=== PATIENT | male | born 1975 | race Caucasian/White ===

== ENCOUNTER 2020-02-10 08:07 | Observation (INO) | payer BC ==
[2020-02-09 11:03] VITALS: BMI 37.3
[~2020-02-10 08:07] MED LIST: ACETAMINOPHEN TAB 500 MG TAB PO ONE; DEXAMETHASONE SOD PHOSPHATE 4 MG/ML 1 ML VIAL IV ONE; HEPARIN SODIUM,PORCINE 5,000 UNIT/ML 1 ML VIAL SQ ONE; LIDOCAINE 1% (10MG/ML) FOR IV START INTRADERMA PRN; ONDANSETRON 4 MG/2 ML VIAL IVP ONE; SCOPOLAMINE 1.5MG/72HR PATCH TRANSDERM ONE; ceFAZolin 3 GM in SODIUM CHLORIDE 0.9% 100 ML IVPB ONE
[2020-02-10] MEDS: LACTATED RINGERS 1,000 ML IV SCH (09:00)
[2020-02-10] MEDS ORDERED: fentaNYL (PF) 50 MCG/ML 2 ML AMP IV ONE (09:44)
[2020-02-10] MEDS ORDERED: MIDAZOLAM 2 MG/2 ML VIAL IV ONE (09:44)
--- NOTE | 2020-02-10 10:13 | P.GSHP ---
History of Present Illness H&P Date: 02/10/20 Chief Complaint: Incisional hernia This is a 44-year-old male who presents today for open repair of incisional hernia. Patient previous exploratory laparotomy for a pancreatic operation many years ago. Past Medical History Past Medical History: GERD/Reflux, Hypertension, Thyroid Disorder Additional Past Medical History / Comment(s): "slight high blood pressure"- no rx, History of Any Multi-Drug Resistant Organisms: None Reported Past Surgical History: Orthopedic Surgery, Tonsillectomy Additional Past Surgical History / Comment(s): exploratory lap surgery / stents placed in pancreas, left knee surgery Past Anesthesia/Blood Transfusion Reactions: No Reported Reaction Past Psychological History: No Psychological Hx Reported Smoking Status: Former smoker Past Alcohol Use History: Occasional Additional Past Alcohol Use History / Comment(s): quit smoking 6 yrs ago, smoked for 19 yrs, 1 PPD Past Drug Use History: None Reported - Past Family History Mother Family Medical History: No Reported History Medications and Allergies Home Medications Medication Instructions Recorded Confirmed Type Ibuprofen [Motrin Ib] 200 mg PO Q8H PRN 02/09/20 02/09/20 History Synthroid(Dose Unknown) 1 tab PO QAM 02/09/20 02/09/20 History Allergies Allergy/AdvReac Type Severity Reaction Status Date / Time mushroom Allergy Unknown Verified 02/09/20 10:56 Surgical - Exam Vital Signs Temp Pulse Resp BP Pulse Ox 98.9 F 67 20 135/85 98 02/10/20 08:40 02/10/20 08:40 02/10/20 08:40 02/10/20 08:40 02/10/20 08:40 - General well developed, well nourished, no distress - Eyes PERRL - ENT normal pinna - Neck no masses - Respiratory normal expansion - Cardiovascular Rhythm: regular - Abdomen Midline scar with incisional hernias Abdomen: soft, non tender Assessment and Plan Assessment: Incisional hernia. We'll perform open repair.
[2020-02-10] MEDS ORDERED: fentaNYL (PF) 50 MCG/ML 2 ML AMP ONE (10:16)
[2020-02-10] MEDS ORDERED: PROPOFOL 10 MG/ML 20 ML VIAL IV ONE (10:16)
[2020-02-10] MEDS ORDERED: LIDOCAINE 1% INJ 10MG/ML (20 ML MDV) ONE (10:16)
[2020-02-10] MEDS ORDERED: ONDANSETRON 4 MG/2 ML VIAL ONE (10:16)
[2020-02-10] MEDS ORDERED: KETAMINE 10 MG/ML 20 ML VIAL ONE (10:16)
[2020-02-10] MEDS ORDERED: DEXAMETHASONE SOD PHOSPHATE 4 MG/ML 1 ML VIAL ONE (10:16)
[2020-02-10] MEDS ORDERED: ROPIVACAINE 5 MG/ML 30 ML VIAL ONE (10:16)
[2020-02-10] MEDS ORDERED: ePHEDrine SULFATE/0.9% NACL/PF 50 MG/5 ML SYRINGE IV ONE (10:16)
[2020-02-10] MEDS ORDERED: NEOSTIGMINE 1 MG/ML 10 ML VIAL ONE (10:16)
[2020-02-10] MEDS ORDERED: ROCURONIUM 10 MG/ML (10 ML VIAL) IV ONE (10:16)
[2020-02-10] MEDS ORDERED: KETOROLAC 15 MG/ML 1 ML VIAL ONE (10:16)
[2020-02-10] MEDS ORDERED: GLYCOPYRROLATE 0.2 MG/ML 2 ML VIAL ONE (10:16)
[2020-02-10] MEDS ORDERED: MIDAZOLAM 2 MG/2 ML VIAL ONE (10:16)
[2020-02-10] MEDS ORDERED: SUCCINYLCHOLINE CHLORIDE VIAL 200 MG/10 ML VIAL IV ONE (10:16)
[2020-02-10] MEDS ORDERED: HYDROmorphone 0.5 MG/0.5 ML SYRINGE IVP PRN (12:03)
[2020-02-10] MEDS ORDERED: ONDANSETRON 4 MG/2 ML VIAL IVP PRN (12:03)
[2020-02-10] MEDS ORDERED: HYDROcodone/APAP 5-325MG 1 EACH TAB PO PRN (12:03)
[2020-02-10] MEDS ORDERED: NALOXONE 0.4 MG/ML 1 ML VIAL IV PRN (12:03)
[2020-02-10] MEDS ORDERED: LACTATED RINGERS 1,000 ML IV ONE (12:03)
[2020-02-10] MEDS ORDERED: ACETAMINOPHEN TAB 325 MG TAB PO PRN (12:03)
--- NOTE | 2020-02-10 12:03 | P.OP ---
Date of Procedure: 02/10/20 Preoperative Diagnosis: Incisional hernia Postoperative Diagnosis: Incarcerated incisional hernia Procedure(s) Performed: (Incarcerated ventral hernia with mesh. Partial omentectomy Anesthesia: SNEHAL Surgeon: Orlando Salcedo Estimated Blood Loss (ml): 5 Pathology: other (Omentum) Condition: stable Disposition: PACU Description of Procedure: The patient's placed in the operative table in the supine position. He received general anesthesia. His and prepped and draped usual sterile fashion. The skin was incised along the midline scar and the scar was excised. The subcutaneous tissue divided with cautery and the incarcerated incisional hernia was located. The patient's entire midline scar appeared to be several hernias. The hernia sac was opened. The incarcerated omentum was transected sent to pathology. The fascial repair was then performed using. 0 Ethibond suture. #1 out of 6 was then used to buttress the repair. Prolene mesh was then placed over top the repair and secured with a secure strap tacker. A TERESA drains placed through separate stab wishes and brought through the left upper quadrant. The drain secured with 2-0 nylon. Stefani's fascia closed 0 Vicryl. Skin was closed calista. Patient top she will sent to recovery in stable condition.
--- NOTE | 2020-02-10 12:39 | P.ANPRN ---
Procedure Note - Anesthesia - Nerve Block Performed Bilateral Rectus Abdominis Time Out Performed: Yes (:43) Date of Procedure: 02/10/20 Procedure Start Time: : Procedure Stop Time: : Location of Patient: PreOp Indication: Acute Post-Operative Pain, Requested by Surgeon (Dr Salcedo) Sedation Type: Sedate with meaningful contact maintained Preparation: Sterile Prep Position: Supine Catheter: None Needle Types: Pajunk Needle Gauge: 21 Ultrasound used to visualize needle placement: Yes Ultrasound used to observe medication spread: Yes Injectate: 0.5% Ropivacaine (see comment for volume) (15cc each side. Decadron 2mg each side.) Blood Aspirated: No Pain Paresthesia on Injection Noted: No Resistance on Injection: Normal Image Stored and Saved: Yes Events: Uneventful and Well Tolerated
[2020-02-10] MEDS ORDERED: diphenhydrAMINE 50 MG/ML 1 ML VIAL IVP ONE (12:49)
[2020-02-10] MEDS: HYDROmorphone 0.5 MG/0.5 ML SYRINGE IVP PRN ×2 (13:07→13:33)
--- NOTE | 2020-02-10 16:25 | P.CONS ---
History of Present Illness - Reason for Consult Hypothyroidism - History of Present Illness 44-year-old the male is admitted for incisional hernia repair, patient had this is incisional hernia from his pancreatic surgery about 20 years ago. Patient is passing gas patient denied any fever chills nausea vomiting dysuria patient is feeling much better does have an abdominal binder does have bowel sounds. Patient initially was bit tachycardic that resolved at this time. Review of Systems REVIEW OF SYSTEMS: CONSTITUTIONAL: No fever, no malaise, no fatigue. HEENT: No recent visual problems or hearing problems. Denied any sore throat. CARDIOVASCULAR: No chest pain, orthopnea, PND, no palpitations, no syncope. PULMONARY: No shortness of breath, no cough, no hemoptysis. GASTROINTESTINAL: No diarrhea, no nausea, no vomiting, no abdominal pain. NEUROLOGICAL: No headaches, no weakness, no numbness. HEMATOLOGICAL: Denies any bleeding or petechiae. GENITOURINARY: Denies any burning micturition, frequency, or urgency. MUSCULOSKELETAL/RHEUMATOLOGICAL: Denies any joint pain, swelling, or any muscle pain. ENDOCRINE: Denies any polyuria or polydipsia. The rest of the 14-point review of systems is negative. Past Medical History Past Medical History: GERD/Reflux, Hypertension, Thyroid Disorder Additional Past Medical History / Comment(s): "slight high blood pressure"- no rx, History of Any Multi-Drug Resistant Organisms: None Reported Past Surgical History: Orthopedic Surgery, Tonsillectomy Additional Past Surgical History / Comment(s): exploratory lap surgery / stents placed in pancreas, left knee surgery, open hernia repair with mesh 2019. Past Anesthesia/Blood Transfusion Reactions: No Reported Reaction Past Psychological History: No Psychological Hx Reported Smoking Status: Former smoker Past Alcohol Use History: Occasional Additional Past Alcohol Use History / Comment(s): quit smoking 6 yrs ago, smoked for 19 yrs, 1 PPD Past Drug Use History: None Reported - Past Family History Mother Family Medical History: No Reported History Medications and Allergies Home Medications Medication Instructions Recorded Confirmed Type Ibuprofen [Motrin Ib] 200 mg PO Q8H PRN 02/09/20 02/09/20 History Synthroid(Dose Unknown) 1 tab PO QAM 02/09/20 02/09/20 History Allergies Allergy/AdvReac Type Severity Reaction Status Date / Time mushroom Allergy Unknown Verified 02/09/20 10:56 Physical Exam Vitals: Vital Signs Temp Pulse Pulse Resp BP BP BP 02/10/20 15:00 97.8 F 125 H 20 137/84 02/10/20 14:00 69 16 113/65 02/10/20 13:50 101 H 18 113/59 02/10/20 13:35 66 16 121/62 02/10/20 13:20 61 16 126/66 02/10/20 13:05 73 16 117/65 02/10/20 12:50 75 16 121/65 02/10/20 12:35 76 16 122/73 02/10/20 12:20 76 16 137/71 02/10/20 12:05 97.2 F L 67 16 141/73 02/10/20 09:50 67 18 130/83 02/10/20 08:40 98.9 F 67 20 135/85 Pulse Ox 02/10/20 15:00 94 L 02/10/20 14:00 91 L 02/10/20 13:50 92 L 02/10/20 13:35 92 L 02/10/20 13:20 92 L 02/10/20 13:05 95 02/10/20 12:50 96 02/10/20 12:35 100 02/10/20 12:20 100 02/10/20 12:05 95 02/10/20 09:50 99 02/10/20 08:40 98 Intake and Output 02/10/20 02/10/20 02/10/20 06:59 14:59 22:59 Intake Total 1950 Output Total 20 Balance 1929 Intake: IV 1950 Output: Estimated Blood Loss 20 Other: Weight 126.9 kg PHYSICAL EXAMINATION: GENERAL: The patient is alert and oriented x3, not in any acute distress. Well developed, well nourished. Obese HEENT: Pupils are round and equally reacting to light. EOMI. No scleral icterus. No conjunctival pallor. Normocephalic, atraumatic. No pharyngeal erythema. No thyromegaly. CARDIOVASCULAR: S1 and S2 present. No murmurs, rubs, or gallops. PULMONARY: Chest is clear to auscultation, no wheezing or crackles. ABDOMEN abdominal binder in place nontender, nondistended, normoactive bowel sounds. No palpable organomegaly. MUSCULOSKELETAL: No joint swelling or deformity. EXTREMITIES: No cyanosis, clubbing, or pedal edema. NEUROLOGICAL: Gross neurological examination did not reveal any focal deficits. SKIN: No rashes. Assessment and Plan Plan: -Hyperthyroidism patient will be per resumed on levothyroxin -Obesity -Status post incisional hernia repair pain management and DVT prophylaxis as per primary service
[2020-02-10] MEDS: KETOROLAC 15 MG/ML 1 ML VIAL IVP SCH ×2 (17:57→23:40)
[2020-02-11] MEDS: LEVOTHYROXINE 100 MCG TAB PO SCH (05:42)
[2020-02-11] MEDS: KETOROLAC 15 MG/ML 1 ML VIAL IVP SCH ×4 (05:43→23:28)
[2020-02-11] MEDS: LACTATED RINGERS 1,000 ML IV SCH (05:46)
[2020-02-11] MEDS: ENOXAPARIN 40 MG/0.4 ML SYRINGE SQ SCH (09:04)
--- NOTE | 2020-02-11 15:30 | P.PN ---
Subjective Progress Note Date: 02/11/20 CHIEF COMPLAINT: Open incisional hernia repair HISTORY OF PRESENT ILLNESS: The patient is a 44-year-old male status post incisional hernia repair. He feels well. Pain is controlled. He is tolerating a sandwich and juice. Output of TERESA over 200+ mL. ROS: No reports of nausea and vomiting. No fevers or chills. No new chest pain. No productive sputum PHYSICAL EXAM: VITAL SIGNS: Reviewed CONSTITUTIONAL: Well developed and in no acute distress. EYES: Conjuctivae without sclera icterus. Extraocular movements grossly intact. HEAD, EARS, NOSE, THROAT: Moist buccal mucosa. Head is atraumatic, normocephalic. Hears conversational speech. No nasal drainage. NECK: Supple. RESPIRATORY: Non-labored respirations and equal bilateral excursions. CARDIOVASCULAR: Palpable 2+ radial pulses. ABDOMEN: TERESA sanguinous. Dressing intact. Binder repositioned MUSCULOSKELETAL: No gross deformity of the lower extremities noted. No clubbing. No cyanosis. SKIN: Good skin turgor. Well perfused. NEUROLOGIC: Cranial nerves II through XII grossly intact. No focal or lateralizing signs. PSYCH: Appropriate affect. Alert and oriented to person, place and time. CLINICAL LABS: No new labs ASSESSMENT: 1. Open incisional hernia repair PLAN: 1. Check CBC for moderate sanguinous drainage from TERESA 2. Continue diet. Objective - Vital Signs Vital signs: Vital Signs Temp 98 F 02/11/20 14:48 Pulse 82 02/11/20 14:48 Resp 17 02/11/20 02:28 BP 128/78 02/11/20 14:48 Pulse Ox 96 02/11/20 14:48 Intake & Output 02/10/20 02/11/20 02/11/20 18:59 06:59 18:59 Intake Total 1950 Output Total 110 170 270 Balance 1840 -170 -270 Weight 126.9 kg Intake: IV 1950 Output: Drainage 90 170 270 Abdomen 90 170 270 Estimated Blood Loss 20 Other: Voiding Method Toilet Toilet # Voids 2 - Labs CBC & Chem 7: 02/11/20 15:38 Assessment and Plan (1) Incisional hernia Current Visit: Yes Status: Acute Code(s): K43.2 - INCISIONAL HERNIA WITHOUT OBSTRUCTION OR GANGRENE SNOMED Code(s): 062007105 (2) Obesity due to excess calories Current Visit: Yes Status: Acute Code(s): E66.09 - OTHER OBESITY DUE TO EXCESS CALORIES SNOMED Code(s): 684095060
--- NOTE | 2020-02-11 15:38 | P.PN ---
Subjective patient is clinically doing well and had a bowel movement. Patient probably can be discharged . Patient is overall doing well except for significant drainage from the TERESA drain. Constitutional: Denied any fatigue denied any fever. Cardio vascular: denied any chest pain, palpitations Gastrointestinal denied any nausea vomiting Pulmonary: Denied any shortness of breath cough Neurologic denied any new focal deficits All inpatient medications were reviewed and appropriate changes in these medications as dictated in the interval history and assessment and plan. Objective - Vital Signs Vital signs: Vital Signs Temp 98 F 02/11/20 14:48 Pulse 82 02/11/20 14:48 Resp 17 02/11/20 02:28 BP 128/78 02/11/20 14:48 Pulse Ox 96 02/11/20 14:48 Intake & Output 02/10/20 02/11/20 02/11/20 18:59 06:59 18:59 Intake Total 1950 Output Total 110 170 270 Balance 1840 -170 -270 Weight 126.9 kg Intake: IV 1950 Output: Drainage 90 170 270 Abdomen 90 170 270 Estimated Blood Loss 20 Other: Voiding Method Toilet Toilet # Voids 2 - Exam PHYSICAL EXAMINATION: GENERAL: The patient is alert and oriented x3, not in any acute distress. Well developed, well nourished. Obese HEENT: Pupils are round and equally reacting to light. EOMI. No scleral icterus. No conjunctival pallor. Normocephalic, atraumatic. No pharyngeal erythema. No thyromegaly. CARDIOVASCULAR: S1 and S2 present. No murmurs, rubs, or gallops. PULMONARY: Chest is clear to auscultation, no wheezing or crackles. ABDOMEN abdominal binder in place nontender, nondistended, normoactive bowel sounds. No palpable organomegaly. MUSCULOSKELETAL: No joint swelling or deformity. EXTREMITIES: No cyanosis, clubbing, or pedal edema. NEUROLOGICAL: Gross neurological examination did not reveal any focal deficits. SKIN: No rashes. Assessment and Plan Plan: -Hyperthyroidism was resumed on levothyroxin -Obesity -Status post incisional hernia repair pain management and DVT prophylaxis as per primary servicepatient has a TERESA drain which is draining significantly we'll follow the patient on as-needed basis.
[2020-02-11 16:04] LABS: Basophils # (A) 0.1 k/uL (0-0.2); Basophils % (A) 1 %; Eosinophils # (A) 0.2 k/uL (0-0.7); Eosinophils % (A) 1 %; HCT 38.8 % (39.0-53.0); Lymphocytes # (A) 1.9 k/uL (1.0-4.8); Lymphocytes % (A) 14 %; MCH 31.1 pg (25.0-35.0); MCHC 33.6 g/dL (31.0-37.0); MCV 92.6 fL (80.0-100.0); Monocytes # (A) 0.8 k/uL (0-1.0); Monocytes % (A) 6 %; Neutrophils # (A) 10.2 k/uL (1.3-7.7); Neutrophils % (A) 77 %; Platelet Count 328 k/uL (150-450); RBC 4.19 m/uL (4.30-5.90); WBC 13.3 k/uL (3.8-10.6)
[2020-02-12] MEDS: KETOROLAC 15 MG/ML 1 ML VIAL IVP SCH (05:19)
[2020-02-12] MEDS: LACTATED RINGERS 1,000 ML IV SCH (05:19)
[2020-02-12] MEDS: LEVOTHYROXINE 100 MCG TAB PO SCH (05:19)
[2020-02-12 07:13] LABS: Basophils % (A) 0 %; Eosinophils # (A) 0.2 k/uL (0-0.7); Eosinophils % (A) 2 %; HCT 35.1 % (39.0-53.0); HGB 11.9 gm/dL (13.0-17.5); Lymphocytes # (A) 1.5 k/uL (1.0-4.8); Lymphocytes % (A) 15 %; MCH 31.7 pg (25.0-35.0); MCHC 33.9 g/dL (31.0-37.0); MCV 93.4 fL (80.0-100.0); Mean Platelet Volume 7.1; Monocytes # (A) 0.7 k/uL (0-1.0); Monocytes % (A) 7 %; Neutrophils # (A) 7.4 k/uL (1.3-7.7); Neutrophils % (A) 74 %; Platelet Count 265 k/uL (150-450); RBC 3.75 m/uL (4.30-5.90); RDW 12.2 % (11.5-15.5)
[2020-02-12 08:28] VITALS: BP 137/95; PULSE 91; RESP 16; TEMP 98.1
[2020-02-12] MEDS: ENOXAPARIN 40 MG/0.4 ML SYRINGE SQ SCH (08:28)
--- NOTE | 2020-02-12 12:03 | P.PN ---
Subjective patient is clinically doing well and had a bowel movement. Patient probably can be discharged . Patient is overall doing well except for significant drainage from the TERESA drain. 02/12/2020 Patient is clinically doing well his output from TERESA drain has significantly gone down possibly will be discharged Constitutional: Denied any fatigue denied any fever. Cardio vascular: denied any chest pain, palpitations Gastrointestinal denied any nausea vomiting Pulmonary: Denied any shortness of breath cough Neurologic denied any new focal deficits All inpatient medications were reviewed and appropriate changes in these medications as dictated in the interval history and assessment and plan. Objective - Vital Signs Vital signs: Vital Signs Temp 98.1 F 02/12/20 08:25 Pulse 91 02/12/20 08:25 Resp 16 02/12/20 08:25 BP 137/95 02/12/20 08:25 Pulse Ox 94 L 02/12/20 08:25 Intake & Output 02/11/20 02/12/20 02/12/20 18:59 06:59 18:59 Intake Total 700 Output Total 300 20 15 Balance -300 680 -15 Intake: Oral 700 Output: Drainage 300 20 15 Abdomen 300 20 15 Other: Voiding Method Toilet Toilet Toilet # Voids 4 2 - Exam PHYSICAL EXAMINATION: GENERAL: The patient is alert and oriented x3, not in any acute distress. Well developed, well nourished. Obese HEENT: Pupils are round and equally reacting to light. EOMI. No scleral icterus. No conjunctival pallor. Normocephalic, atraumatic. No pharyngeal erythema. No thyromegaly. CARDIOVASCULAR: S1 and S2 present. No murmurs, rubs, or gallops. PULMONARY: Chest is clear to auscultation, no wheezing or crackles. ABDOMEN abdominal binder in place nontender, nondistended, normoactive bowel sounds. No palpable organomegaly. MUSCULOSKELETAL: No joint swelling or deformity. EXTREMITIES: No cyanosis, clubbing, or pedal edema. NEUROLOGICAL: Gross neurological examination did not reveal any focal deficits. SKIN: No rashes. - Labs CBC & Chem 7: 02/12/20 06:34 Labs: Abnormal Lab Results - Last 24 Hours (Table) 02/11/20 02/12/20 Range/Units 15:38 06:34 WBC 13.3 H (3.8-10.6) k/uL RBC 4.19 L 3.75 L (4.30-5.90) m/uL Hgb 11.9 L (13.0-17.5) gm/dL Hct 38.8 L 35.1 L (39.0-53.0) % Neutrophils # 10.2 H (1.3-7.7) k/uL Assessment and Plan Plan: -Hyperthyroidism continue on levothyroxin -Obesity -Status post incisional hernia repair pain management and DVT prophylaxis as per primary servicepatient
--- NOTE | 2020-02-12 12:50 | P.DS ---
Providers Date of admission: 02/11/20 05:55 Expected date of discharge: 02/12/20 Attending physician: Orlando Salcedo Consults: 02/10/20 12:03 Consult Physician Routine Consulting Provider: Rajinder Pedroza Consult Reason/Comments: med manage Do you want consulting provider notified?: Yes Primary care physician: Francisco J Escobar - Discharge Diagnosis(es) (1) Incisional hernia Current Visit: Yes Status: Acute (2) Obesity due to excess calories Current Visit: Yes Status: Acute Hospital Course: CHIEF COMPLAINT: Open incisional hernia repair HISTORY OF PRESENT ILLNESS: The patient is a 44-year-old male status post incisional hernia repair. His pain is controlled. He is tolerating regular diet. Output of TERESA sanguinous improved from over 200+ mL yesterday to less than 100 mL. ROS: No reports of nausea and vomiting. No fevers or chills. No new chest pain. No productive sputum PHYSICAL EXAM: VITAL SIGNS: Reviewed CONSTITUTIONAL: Well developed and in no acute distress. EYES: Conjuctivae without sclera icterus. Extraocular movements grossly intact. HEAD, EARS, NOSE, THROAT: Moist buccal mucosa. Head is atraumatic, normocephalic. Hears conversational speech. No nasal drainage. NECK: Supple. RESPIRATORY: Non-labored respirations and equal bilateral excursions. CARDIOVASCULAR: Palpable 2+ radial pulses. ABDOMEN: TERESA sanguinous. Dressing intact. Abdominal binder present MUSCULOSKELETAL: No gross deformity of the lower extremities noted. No clubbing. No cyanosis. SKIN: Good skin turgor. Well perfused. NEUROLOGIC: Cranial nerves II through XII grossly intact. No focal or lateralizing signs. PSYCH: Appropriate affect. Alert and oriented to person, place and time. CLINICAL LABS: Hgb 11.9. WBC normal ASSESSMENT: 1. Open incisional hernia repair PLAN: 1. Overall, stable for discharge. 2. Diet as tolerated 3. Pain management reviewed Patient Condition at Discharge: Stable Plan - Discharge Summary Discharge Rx Participant: Yes New Discharge Prescriptions: New Ibuprofen [Motrin] 600 mg PO Q8HR PRN #30 tab PRN Reason: Pain Acetaminophen Tab [Tylenol Tab] 1,000 mg PO Q6HR PRN #30 tablet Continue Synthroid(Dose Unknown) 1 tab PO QAM Discontinued Ibuprofen [Motrin Ib] 200 mg PO Q8H PRN PRN Reason: Pain Discharge Medication List Synthroid(Dose Unknown) 1 tab PO QAM 02/09/20 [History] Acetaminophen Tab [Tylenol Tab] 1,000 mg PO Q6HR PRN #30 tablet 02/12/20 [Rx] Ibuprofen [Motrin] 600 mg PO Q8HR PRN #30 tab 02/12/20 [Rx] Follow up Appointment(s)/Referral(s): Orlando Salcedo MD [STAFF PHYSICIAN] - 02/21/20 1:30 pm Patient Instructions/Handouts: [place] Drain Care (DC), Open Herniorrhaphy (DC), Abdominal Binder (DC), Ventral Hernia Repair (DC) Activity/Diet/Wound Care/Special Instructions: No lifting over 10 pounds for 4 weeks No bath tub soaks Keep TERESA site dry Wear abdominal binder for comfort Discharge Disposition: HOME SELF-CARE
== END 2020-02-12 13:20 | disposition home or self-care (01) ==
LOC: OR 08:07 → 4SSUR 11:54 → OR 02-11 06:28 → 1SOBS 02-11 21:27
PROVIDERS: ADMIT Surgery; ATTEND Surgery
DX: K43.0 Incisional hernia with obstruction, without gangrene (principal); E03.9 Hypothyroidism, unspecified; I10 Essential (primary) hypertension; K21.9 Gastro-esophageal reflux disease without esophagitis; Z68.37 Body mass index [BMI] 37.0-37.9, adult; E66.09 Other obesity due to excess calories; Z79.1 Long term (current) use of non-steroidal anti-inflammatories (NSAID); Z79.890 Hormone replacement therapy; Z91.018 Allergy to other foods; Z98.890 Other specified postprocedural states; Z87.891 Personal history of nicotine dependence
CPT/HCPCS: 49561; 49568; 93005; 64488; 88305; 85025 ×2; G0378 ×3; C1781; J2250; J0330; J1200; J1644; J1100; J2710; J0690; J2405; J2001; J1650 ×2; J3010; J2795; J1885 ×3; J2704; J1170

== ENCOUNTER → 2023-05-14 | Outpatient (CLI) | payer BC ==
[~2023-05-14] MED LIST changes: -ACETAMINOPHEN TAB 500 MG TAB PO ONE; -DEXAMETHASONE SOD PHOSPHATE 4 MG/ML 1 ML VIAL IV ONE; -HEPARIN SODIUM,PORCINE 5,000 UNIT/ML 1 ML VIAL SQ ONE; -LIDOCAINE 1% (10MG/ML) FOR IV START INTRADERMA PRN; -ONDANSETRON 4 MG/2 ML VIAL IVP ONE; +REGADENOSON 0.4 MG/5 ML SYRINGE IV PRN; -SCOPOLAMINE 1.5MG/72HR PATCH TRANSDERM ONE; -ceFAZolin 3 GM in SODIUM CHLORIDE 0.9% 100 ML IVPB ONE
--- NOTE | 2023-05-14 11:25 | CA ---
Transthoracic Echo Report Name: Thor Alexander Age: 47 Gender: M : 1975 Exam Date: 05/14/2023 09:28 Exam Location: [facility] Ht (in): 71 Wt (lb): 298 Ordering Physician: Braden Cardenas DO Attending/Referring Phys: Braden Cardenas DO Sound System Installer Zeny Mansfield RDCS Procedure CPT: Indications: R07.9 CHEST PAIN Cardiac Hx: Technical Quality: Technically difficult study Contrast 1: Definity Total Dose (mL): 2 Contrast 2: Total Dose (mL): MEASUREMENTS (Male / Female) Normal Values 2D ECHO LV Diastolic Diameter PLAX 4.3 cm 4.2 - 5.9 / 3.9 - 5.3 cm LV Systolic Diameter PLAX 3.1 cm IVS Diastolic Thickness 1.5 cm 0.6 - 1.0 / 0.6 - 0.9 cm LVPW Diastolic Thickness 1.8 cm 0.6 - 1.0 / 0.6 - 0.9 cm LV Relative Wall Thickness 0.8 RV Internal Dim ED PLAX 3.2 cm LA Volume 64.1 cm??? 18 - 58 / 22 - 52 cm??? LA Volume Index 24.1 cm???/m??? 16 - 28 cm???/m??? M-MODE Aortic Root Diameter MM 2.5 cm LA Systolic Diameter MM 3.7 cm LA Ao Ratio MM 1.5 AV Cusp Separation MM 1.7 cm DOPPLER AV Peak Velocity 136.5 cm/s AV Peak Gradient 7.5 mmHg AV Mean Velocity 99.7 cm/s AV Mean Gradient 4.3 mmHg AV Velocity Time Integral 26.6 cm LVOT Peak Velocity 129.9 cm/s LVOT Peak Gradient 6.7 mmHg LVOT Velocity Time Integral 27.5 cm MV Area PHT 4.3 cm??? Mitral E Point Velocity 90.5 cm/s Mitral A Point Velocity 89.8 cm/s Mitral E to A Ratio 1.0 MV Deceleration Time 174.8 ms MV E' Velocity 7.7 cm/s Mitral E to MV E' Ratio 11.7 TR Peak Velocity 287.1 cm/s TR Peak Gradient 33.0 mmHg Right Ventricular Systolic Press 36.3 mmHg FINDINGS Left Ventricle Moderately increased left ventricular wall thickness. Left ventricular cavity size normal. Normal left ventricular systolic function with no obvious regional wall motion abnormalities. Left ventricular ejection fraction is estimated at 55-60 %. Right Ventricle Normal right ventricular size and function. Mild pulmonary hypertension. Right Atrium Normal right atrial size. Left Atrium Mildly increased left atrial volume. Mitral Valve Structurally normal mitral valve. No mitral stenosis, regurgitation or prolapse. Aortic Valve Trileaflet aortic valve. No aortic valve stenosis or regurgitation. Tricuspid Valve Structurally normal tricuspid valve. Mild tricuspid regurgitation. Pulmonic Valve Structurally normal pulmonic valve. Pericardium No pericardial effusion. Aorta Normal size aortic root and proximal ascending aorta. CONCLUSIONS Moderate increased left ventricular wall thickness Left ventricular ejection fraction 55-60% RVSP 36 Mild mitral regurgitation No pericardial effusion Previewed by: Dr. True Hilario DO (Electronically Signed) Final Date: 14 May 2023 11:24
--- NOTE | 2023-05-14 13:28 | NM ---
EXAMINATION TYPE: NM stress lexiscan cardiolite DATE OF EXAM: 05/14/2023 COMPARISON: NONE CLINICAL INDICATION: Male, 47 years old with history of R07.9 CHEST PAIN; TECHNIQUE: After the intravenous administration of 10.6 mCi Tc 99m Sestamibi - Cardiolite resting SP ECT images acquired 45 minutes post injection. The patient received 0.4mg Lexiscan, 26.6 mCi Tc 99m Sestamibi - Stress images obtained [address] injection FINDINGS: Review of stress and rest SPECT images demonstrates fixed decreased perfusion along the inferior wall suggesting diaphragmatic attenuation artifact. No discrete reversibility is seen. Gated analysis chuyita ws normal wall motion with an a borderline estimated left ventricular ejection fraction of 54 %. TID is upper limits of normal at 1.05. IMPRESSION: 1. Borderline estimated LVEF at 54%. 2. Fixed inferior wall defect favored to represent diaphragmatic attenuation artifact rather than an old infarct. Clinically correlate. 3. No scintigraphic evidence for reversible ischemia.
--- NOTE | 2023-05-14 23:32 | CA ---
Lexiscan Nuclear Stress Test Report Name: Thor Alexander Exam Date: 05/14/2023 10:54 Exam Location: [facility] Ht (in): 71 Wt (lb): 298 BSA: 2.50 Ordering Phys: Braden Cardenas DO Referring Phys: Braden Cardenas DO Technologist: TETE Age: 47 Gender: M : 1975 Procedure CPT: Indications: R07.9 CHEST PAIN ICD-10 Codes: Patient History: Chest pain and hypertension Medications: Meds past 24 hrs: Pretest Chest Pain: STRESS TEST Lexiscan Protocol Exercise Duration (min:sec): 01:[address] Depressions (mm): Angina Score: Arzola Score: Resting HR (bpm): 76 Peak HR (bpm): 107 Resting BP (mmHg): 131 / 85 Peak BP (mmHg): 150 / 89 MPHR: 171 Target HR: 145 % MPHR: 63 METS: 1.0 Total Dose: Peak Dose: Atropine: Double Product: 95041 BP Response: Stress Termination: INFUSION COMPLETE Stress Symptoms: ABD CRAMPING Stress Summary: ECG ANALYSIS Resting ECG: Stress ECG: CONCLUSIONS At baseline EKG showed normal sinus rhythm, left axis deviation, LVH, RBBB with 0.5mm St depressions in aVL, V2. Patient recieved IV infusion of Lexiscan 0.4mg and at peak infusion EKG showed no significant change from baseline. Conclusions: 1. Nonspecific stress EKG secondary to baseline EKG abnormalities. 2. Nuclear imaging to be reported separately. Dr. True Hilario DO (Electronically Signed) Final Date: 14 May 2023 23:31
== END | disposition home or self-care (01) ==
LOC: RADNMMAIN 08:46
PROVIDERS: ATTEND Internal Medicine
DX: I34.0 Nonrheumatic mitral (valve) insufficiency (principal); I11.9 Hypertensive heart disease without heart failure; R07.9 Chest pain, unspecified
CPT/HCPCS: 93017; 93306; 78452; A9500; Q9957; J2785

== ENCOUNTER → 2023-06-18 | Outpatient (CLI) | payer BC ==
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
== END | disposition home or self-care (01) ==
LOC: RADUSWWP 06:46
PROVIDERS: ATTEND Internal Medicine
DX: K76.0 Fatty (change of) liver, not elsewhere classified (principal); R74.01 Elevation of levels of liver transaminase levels
CPT/HCPCS: 76705